=== PATIENT | male | born 1985 ===

== ENCOUNTER 2017-10-08 09:39 | Emergency (ER) | payer SELFPAY ==
--- NOTE | 2017-10-08 12:32 | UC ---
Ear Complaint HPI - HPI Summary HPI Summary: 32 y/o male presents to the urgent care c/o LF ear pain and drainage since last night. Pt states drainage is yellowish with watery blood. Pain is 8/10 associated with SRINIVASAN, decrease hearing and pressure. Pt took Tylenol PO 2 tabs, overnight to alleviate symptoms. He had a mild nasal congestion for the past 4 days. Pt denies dizziness, fever, SOB, chest pain, abdominal pain, N/V/D, or swimming. - History of Current Complaint Chief Complaint: UCEar Stated Complaint: EAR PAIN Time Seen by Provider: 10/08/17 12:30 Hx Obtained From: Patient Onset/Duration: Gradual Onset, Lasting Days - 1 day Severity Initially: Mild Severity Currently: Moderate Pain Intensity: 8 Pain Scale Used: 0-10 Numeric Aggravating Factors: Other - touch Alleviating Factors: OTC Meds Associated Signs/Symptoms: Positive: Discharge, Hearing Loss, URI Symptoms - Allergies/Home Medications Allergies/Adverse Reactions: Allergies Allergy/AdvReac Type Severity Reaction Status Date / Time No Known Allergies Allergy Verified 10/08/17 11:18 PMH/Surg Hx/FS Hx/Imm Hx Previously Healthy: Yes - Pt denies PMHX - Surgical History Surgical History: Yes Surgery Procedure, Year, and Place: R knee ACL reconstruction 2009 - Family History Known Family History: Positive: None - Pt denies FMHX - Social History Occupation: Employed Full-time Lives: With Family Alcohol Use: Occasionally Substance Use Type: None Smoking Status (MU): Former Smoker Review of Systems Constitutional: Negative Skin: Negative Eyes: Negative ENT: Ear Ache - LF ear pain and purulent drainage, Nasal Discharge Respiratory: Negative Cardiovascular: Negative Gastrointestinal: Negative Genitourinary: Negative Motor: Negative Neurovascular: Negative Musculoskeletal: Negative Neurological: Headache Psychological: Negative Is Patient Immunocompromised?: No All Other Systems Reviewed And Are Negative: Yes Physical Exam Triage Information Reviewed: Yes Vital Signs: Initial Vital Signs Temp 99 F 10/08/17 11:20 Pulse 82 10/08/17 11:20 Resp 18 10/08/17 11:20 BP 116/72 10/08/17 11:20 Pulse Ox 98 10/08/17 11:20 - Additional Comments Vital signs: reviewed General: well developed, well nourished male sitting in the examining table w/ o any apparent distress Skin: Page, warm and dry, no evidence of atopic dermatitis, psoriasis, seborrhea. HEENT: -Head: atraumatic, non tender; no scalp dermatitis. -Eyes: sclera and conjunctiva clear, PERRLA, EOMI -Ears: no pre- or postauricular lymphadenopathy or erythema; RT external ear canal with erythema and yellowish purulent discharge, pinna tenderness on palpation, Rt TM WNL, LF external ear canal clear and LF TM WNL. TMs normal w/ out bulging or retraction. Good light reflex. No fluid level, vesicles, or bullae. No perforation. -Nose/Face: erythematous and edematous nasal mucosa with clear rhinorrhea, no frontal or maxillary sinus tender to palpation. -Mouth/Throat: Mucous membrane moist, posterior pharynx clear, no erythema or exudates. Neck: supple, FROM, nontender, no lymphadenopathy, no meningismus. Chest: Clear to auscultation, normal breath sounds Abd: soft, Bowel sounds active, Nontender. Back: no spinal or CVAT Neuro: A&O x4, GCS 15, no focal neuro deficits, normal behavior for age. Ear Complaint Course/Dx - Course Course Of Treatment: 32 y/o male presents to the urgent care c/o LF ear pain and drainage since last night. Pt states drainage is yellowish with watery blood. Pain is 8/10 associated with SRINIVASAN, decrease hearing and pressure. Pt took Tylenol PO 2 tabs, overnight to alleviate symptoms. He had a mild nasal congestion for the past 4 days. Pt denies dizziness, fever, SOB, chest pain, abdominal pain, N/V/D, or swimming. Hx obtained. Pt with a LF otitis media and LF ottis exteranl on examination. - Differential Dx/Diagnosis Differential Diagnosis/HQI/PQRI: Otitis Externa, Otitis Media, Perforated TM, Pharyngitis, URI Provider Diagnoses: 1- LF acute otitis media. 2- LF Acute otitis Externa Discharge - Discharge Plan Condition: Stable Disposition: HOME Prescriptions: Amoxicillin PO (*) [Amoxicillin 875 MG (*)] 875 mg PO BID #20 tab Ciproflox/Dexameth OTIC.SUSP* [Ciprodex OTIC.SUSP*] 4 drop .SEE ORDER BID #1 btl Ibuprofen TAB* [Motrin TAB* 800 MG] 800 mg PO Q6H PRN #30 tab PRN Reason: otalgia Patient Education Materials: Otitis Externa (DC), Ear Infection (ED) Referrals: [facility] [facility] [Outside] Yefri Moore MD [Medical Doctor] - 3 Days Additional Instructions: 1-Please apply otic antibiotic on your LF ear as directed for OTitis externa. Also take amoxicillin PO as directed for Otitis Media 2-Take ibuprofen PO after meals for pain. 3-Please f/u with your ENT Dr Moore or PCP in 2-3 days if not improvement of symptoms for further evaluation and treatment.
[2017-10-08] MEDS ORDERED: Ibuprofen TAB* 400 MG PO ONE (12:43)
== END 2017-10-08 13:00 | disposition home or self-care (01) ==
LOC: UCEAST 09:39
DX: H66.92 Otitis media, unspecified, left ear (principal); H60.92 Unspecified otitis externa, left ear; Z87.891 Personal history of nicotine dependence
CPT/HCPCS: 99202; A9270-GY; G0463

== ENCOUNTER 2019-06-26 16:16 | Emergency (ER) | payer BC ==
[2019-06-26 18:02] VITALS: BP 137/78
[2019-06-26 18:35] LABS: Influenza A Molecular NEGATIVE (Negative); Influenza B Molecular NEGATIVE (Negative)
--- NOTE | 2019-06-26 18:48 | UC ---
FLU HPI - HPI Summary HPI Summary: 34-year-old male comes in with a chief complaint of 2 days of influenza-like symptoms. At all started with sudden onset with bodyaches fevers chills. Also has a headache and ear pain. No sore throat. With activity he does feel short of breath but he does not feel any chest congestion. He's been using ibuprofen which does help with the fever and bodyaches. No neck pain. No neck stiffness. - History of Current Complaint Chief Complaint: UCGeneralIllness Stated Complaint: COUGH Time Seen by Provider: 06/26/19 18:07 Pain Intensity: 5 - Allergy/Home Medications Allergies/Adverse Reactions: Allergies Allergy/AdvReac Type Severity Reaction Status Date / Time No Known Allergies Allergy Verified 06/26/19 18:02 Home Medications: Home Medications Ibuprofen TAB* [Motrin TAB* 800 MG] 200 mg PO Q6H PRN 06/26/19 [History Confirmed 06/26/19] PMH/Surg Hx/FS Hx/Imm Hx Previously Healthy: Yes - Surgical History Surgical History: Yes Surgery Procedure, Year, and Place: R knee ACL reconstruction 2009 - Family History Known Family History: Positive: None - Pt denies FMHX - Social History Alcohol Use: Occasionally Substance Use Type: None Smoking Status (MU): Former Smoker Review of Systems All Other Systems Reviewed And Are Negative: Yes Constitutional: Positive: Fever, Chills, Other - see hpi Skin: Positive: Negative Eyes: Positive: Negative ENT: Positive: Ear Ache Respiratory: Positive: Other - see hpi Cardiovascular: Positive: Negative Gastrointestinal: Positive: Negative Motor: Positive: Negative Neurovascular: Positive: Negative Musculoskeletal: Positive: Myalgia Neurological: Positive: Headache Psychological: Positive: Negative Is Patient Immunocompromised?: No Physical Exam Triage Information Reviewed: Yes Appearance: No Pain Distress, Well-Nourished, Ill-Appearing - mild Vital Signs: Initial Vital Signs Temp 101.2 F 06/26/19 17:57 Pulse 95 06/26/19 17:57 Resp 16 06/26/19 17:57 BP 137/78 06/26/19 17:57 Pulse Ox 99 06/26/19 17:57 Vital Signs Reviewed: Yes Eye Exam: Normal Eyes: Positive: Conjunctiva Clear, Other: - No photophobia. ENT: Positive: Pharyngeal erythema, TMs normal Neck: Positive: Supple Respiratory: Positive: Lungs clear, Normal breath sounds, No respiratory distress Cardiovascular: Positive: RRR Musculoskeletal: Positive: Strength Intact, ROM Intact Neurological: Positive: Alert, Muscle Tone Normal Psychological: Positive: Age Appropriate Behavior Skin Exam: Normal Flu Course/Dx - Course Course Of Treatment: DISCUSSED VIRAL VERSES BACTERIAL INFECTIONS AND THE ROLE OF ANTIBIOTICS. THE PATIENT PREFERS TO BE ON ANTIBIOTICS AT THIS TIME. Rapid influenza and strep negative. Overall patient does have an influenza- like illness. Discussed treatment with Tamiflu. At this time the patient prefers to be on Tamiflu. Patient to get reevaluated if worse or any questions or concerns. - Differential Dx/Diagnosis Provider Diagnosis: Influenza-like illness, Upper respiratory infection Discharge ED - Sign-Out/Discharge Documenting (check all that apply): Patient Departure All imaging exams completed and their final reports reviewed: No Studies - Discharge Plan Condition: Stable Disposition: HOME Prescriptions: Amoxicillin PO (*) [Amoxicillin 875 MG (*)] 875 mg PO BID #20 tab Oseltamivir CAP* [Tamiflu CAP*] 75 mg PO BID #10 cap Patient Education Materials: Influenza (ED), Upper Respiratory Infection (ED) Referrals: [facility] [place] [facility] [Outside] Additional Instructions: FOLLOW UP WITH YOUR DOCTOR IF NOT COMPLETELY IMPROVED. GET RECHECKED SOONER IF YOUR CONDITION WORSENS OR ANY QUESTIONS OR CONCERNS. - Billing Disposition and Condition Condition: STABLE Disposition: Home
== END 2019-06-26 18:56 | disposition home or self-care (01) ==
LOC: UCEAST 16:16
DX: J06.9 Acute upper respiratory infection, unspecified (principal); J11.1 Influenza due to unidentified influenza virus with other respiratory manifestations; H92.09 Otalgia, unspecified ear; Z87.891 Personal history of nicotine dependence
CPT/HCPCS: 87651; 99212; G0463